=== PATIENT | female | born 2000 | race Caucasian/White ===

== ENCOUNTER → 2021-06-10 22:49 | Observation (INO) | END | disposition home or self-care (01) | LOC: 1NENULAB | PROVIDERS: ADMIT Advanced Practice Midwife; ATTEND Advanced Practice Midwife ==

== ENCOUNTER 2021-06-14 16:42 | Observation (INO) | END 2021-06-14 18:00 | disposition home or self-care (01) | LOC: 1NENULAB | PROVIDERS: ADMIT Obstetrics & Gynecology; ATTEND Obstetrics & Gynecology ==

== ENCOUNTER 2021-06-20 09:48 | Inpatient (IN) ==
[2021-06-20] MEDS ORDERED: Ringers Solution, Lactated 1,000 ML ONE (11:16)
[2021-06-20] MEDS ORDERED: Metoclopramide 10 MG/2 ML VIAL IVP ONE (11:18)
[2021-06-20] MEDS ORDERED: CeFAZolin 2,000 MG/120 ML BAG IVPB ONE (11:18)
[2021-06-20] MEDS ORDERED: Oxytocin 20 units/ LR 1000 mL 20 UNIT/1,000 ML BAG IVC ONE (11:18)
[2021-06-20] MEDS ORDERED: Famotidine 20 MG/2 ML VIAL IVP ONE (11:18)
[2021-06-20] MEDS ORDERED: Naloxone 0.4 MG/ML INJ IVP PRN (11:21)
[2021-06-20] MEDS: Ringers Solution, Lactated 1,000 ML IVC ONE ×2 (11:24→12:14)
[2021-06-20 11:34] LABS: Basophils % 0.1 %; Eosinophils % 0.4 %; Hematocrit 42.2 % (35.3-44.9); Hemoglobin 14.1 g/dL (11.5-15.4); Immature Granulocytes % 0.6 % (0-4); Lymphocytes # 2.1 K/mcL (0.6-4.6); Lymphocytes % 23.6 %; Mean Corpuscular HGB Conc 33.4 g/dL (31.6-35.5); Mean Corpuscular Hemoglobin 29.3 pg (28.0-33.3); Mean Corpuscular Volume 87.7 fL (83.0-100.0); Monocytes # 0.6 K/mcL (0.0-1.3); Monocytes % 7.1 %; Neutrophils # 6.1 K/mcL (1.6-8.9); Platelet Count 284 K/mcL (140-400); Red Blood Count 4.81 M/mcL (3.82-4.97); Red Cell Distribution Width 13.2 % (11.5-14.5); Segmented Neutrophils % 68.2 %; White Blood Count 8.9 K/mcL (4.3-11.1)
[2021-06-20 11:43] LABS: Amphetamine Screen,Urine Negative ng/mL (Cutoff=1000); Barbiturate Screen,Urine Negative ng/mL (Cutoff=200); Benzodiazepines Screen,Urine Negative ng/mL (Cutoff=200); Cannabinoid Screen,Urine Negative ng/mL (Cutoff = 50); Cocaine Screen,Urine Negative ng/mL (Cutoff= 300); Opiate Screen,Urine Negative ng/mL (Cutoff=300); Phencyclidine Screen,Urine Negative ng/mL (Cutoff=25)
[2021-06-20] MEDS ORDERED: *HR* FentaNYL (PF) 100 MCG/2 ML VIAL ONE (12:07)
[2021-06-20] MEDS ORDERED: *HR* Morphine Sulfate/PF 10 MG/10 ML AMPUL ONE (12:07)
[2021-06-20] MEDS ORDERED: Ondansetron 4 MG/2 ML VIAL ONE (12:08)
[2021-06-20] MEDS ORDERED: Acetaminophen IV 1,000 MG/100 ML BAG IVPB ONE (12:08)
[2021-06-20] MEDS ORDERED: Ketorolac 30 MG/ML VIAL ONE (12:08)
[2021-06-20] MEDS ORDERED: EPHEDrine 50 MG/ML VIAL ONE (13:07)
[2021-06-20 13:12] LABS: Bacteria,Urine Few per hpf (None-Few); Bilirubin,Urine Negative (Negative); Blood,Urine Negative (Negative); Clarity,Urine Turbid (Clear); Color,Urine Light-Yellow (Yellow); Glucose,Urine (UA) Normal (Normal); Ketones,Urine Negative (Negative); Leukocyte Esterase,Urine Negative (Negative); Mucus,Urine Few per lpf (None-Few); Nitrite,Urine Negative (Negative); Protein,Urine Negative (Neg-Trace); RBC,Urine 0-3 per hpf (0-3); Specific Gravity,Urine 1.015 (1.010-1.025); Squamous Epithelial Cell,Urine Moderate per hpf (None-Few); Urobilinogen,Urine Normal (Normal); WBC,Urine 0-3 per hpf (0-3)
[2021-06-20 13:18] LABS: Alanine Aminotransferase 90 Units/L (7-52); Aspartate Amino Transferase 46 Units/L (13-39); BUN/Creatinine Ratio 13 (6-26); Blood Urea Nitrogen 9 mg/dL (6-20); Lactate Dehydrogenase 222 Units/L (140-271); Uric Acid 7.4 mg/dL (2.3-7.6); eGFR For African Americans > 60 (> 60); eGFR For Non-African Americans > 60 (> 60)
[2021-06-20 13:24] LABS: Protein/Creatinine Ratio,Urine 0.21 mg/mg (0.00-0.20)
[2021-06-20] MEDS ORDERED: Ondansetron 4 MG/2 ML VIAL IVP PRN (17:40)
[2021-06-20] MEDS ORDERED: Oxytocin 20 units/ LR 1000 mL 20 UNIT/1,000 ML BAG IVC SCH (17:40)
[2021-06-20] MEDS ORDERED: Metoclopramide 10 MG/2 ML VIAL IVP PRN (17:40)
[2021-06-20] MEDS ORDERED: *HR* HYDROcodone/Acet 5/325 mg TABLET PO PRN (17:40)
[2021-06-20] MEDS: Simethicone 80 MG TAB.CHEW PO SCH ×2 (18:18→22:23)
[2021-06-20] MEDS ORDERED: Ketorolac 30 MG/ML VIAL IVP SCH (20:30)
[2021-06-20] MEDS: Acetaminophen 325 MG TABLET PO SCH (22:23)
[2021-06-21] MEDS ORDERED: *HR* Enoxaparin 40 MG/0.4 ML SYRINGE SQ SCH (02:00)
[2021-06-21 05:36] LABS: Basophils % 0.2 %; Eosinophils % 0.2 %; Hematocrit 33.7 % (35.3-44.9); Immature Granulocytes % 0.5 % (0-4); Lymphocytes # 2.7 K/mcL (0.6-4.6); Lymphocytes % 21.5 %; Mean Corpuscular HGB Conc 33.8 g/dL (31.6-35.5); Mean Corpuscular Hemoglobin 30.2 pg (28.0-33.3); Mean Corpuscular Volume 89.4 fL (83.0-100.0); Mean Platelet Volume 11.3 fL (9.4-12.4); Monocytes # 0.7 K/mcL (0.0-1.3); Monocytes % 5.5 %; Neutrophils # 9.2 K/mcL (1.6-8.9); Platelet Count 219 K/mcL (140-400); Red Blood Count 3.77 M/mcL (3.82-4.97); Red Cell Distribution Width 13.2 % (11.5-14.5); Segmented Neutrophils % 72.1 %; White Blood Count 12.7 K/mcL (4.3-11.1)
[2021-06-21 05:40] LABS: Hemoglobin 11.4 g/dL (11.5-15.4)
[2021-06-21] MEDS: Ibuprofen 600 MG TABLET PO SCH ×3 (09:48→21:52)
[2021-06-21] MEDS: Acetaminophen 325 MG TABLET PO SCH ×2 (09:48→21:53)
[2021-06-21] MEDS: Prenatal Vit/FA 1 EACH TABLET PO SCH (09:48)
[2021-06-21 12:00] LABS: Alanine Aminotransferase 64 Units/L (7-52); Aspartate Amino Transferase 52 Units/L (13-39); BUN/Creatinine Ratio 15 (6-26); Blood Urea Nitrogen 12 mg/dL (6-20); Lactate Dehydrogenase 262 Units/L (140-271); Uric Acid 6.5 mg/dL (2.3-7.6); eGFR For African Americans > 60 (> 60); eGFR For Non-African Americans > 60 (> 60)
[2021-06-21] MEDS: Simethicone 80 MG TAB.CHEW PO SCH ×2 (15:26→21:52)
[2021-06-21] MEDS: *HR* Enoxaparin 40 MG/0.4 ML SYRINGE SQ SCH (15:26)
[2021-06-21 18:01] VITALS: O2SAT 99
[2021-06-22] MEDS: *HR* Enoxaparin 40 MG/0.4 ML SYRINGE SQ SCH (02:55)
[2021-06-22] MEDS: Ibuprofen 600 MG TABLET PO SCH ×2 (04:21→12:04)
[2021-06-22] MEDS: Acetaminophen 325 MG TABLET PO SCH ×2 (04:21→12:05)
[2021-06-22 06:36] LABS: Basophils % 0.3 %; Eosinophils # 0.1 K/mcL (0.0-0.6); Eosinophils % 1.3 %; Hematocrit 33.6 % (35.3-44.9); Hemoglobin 10.9 g/dL (11.5-15.4); Immature Granulocytes % 0.5 % (0-4); Lymphocytes # 2.3 K/mcL (0.6-4.6); Lymphocytes % 29.4 %; Mean Corpuscular HGB Conc 32.4 g/dL (31.6-35.5); Mean Corpuscular Hemoglobin 29.6 pg (28.0-33.3); Mean Corpuscular Volume 91.3 fL (83.0-100.0); Mean Platelet Volume 10.6 fL (9.4-12.4); Monocytes # 0.5 K/mcL (0.0-1.3); Monocytes % 6.7 %; Neutrophils # 4.9 K/mcL (1.6-8.9); Platelet Count 215 K/mcL (140-400); Red Blood Count 3.68 M/mcL (3.82-4.97); Red Cell Distribution Width 13.6 % (11.5-14.5); Segmented Neutrophils % 61.8 %; White Blood Count 7.9 K/mcL (4.3-11.1)
[2021-06-22 06:52] LABS: Alanine Aminotransferase 68 Units/L (7-52); Aspartate Amino Transferase 59 Units/L (13-39); BUN/Creatinine Ratio 17 (6-26); Blood Urea Nitrogen 13 mg/dL (6-20); Lactate Dehydrogenase 206 Units/L (140-271); Uric Acid 6.6 mg/dL (2.3-7.6); eGFR For African Americans > 60 (> 60); eGFR For Non-African Americans > 60 (> 60)
[2021-06-22] MEDS: Prenatal Vit/FA 1 EACH TABLET PO SCH (07:39)
[2021-06-22 07:47] VITALS: BP 115/68; TEMP 98.1
[2021-06-22] MEDS ORDERED: Measles/Mumps/Rubella Vacc 0.5 ML VIAL SQ ONE (10:47)
[2021-06-22] MEDS ORDERED: FLU Vac QV 21-22 (6Month+)/PF 0.5 ML SYRINGE IM ONE (10:56)
[2021-06-22 11:35] VITALS: PULSE 76
== END 2021-06-22 13:00 | disposition home or self-care (01) | DRG 540 ==
LOC: 1NENULAB 09:48 → EDSTATUS 12:00 → 1NENUOBS 17:39
PROVIDERS: ADMIT Obstetrics & Gynecology; ATTEND Obstetrics & Gynecology